=== PATIENT | female | born 1945 | race Caucasian/White ===

== ENCOUNTER → 2022-01-30 12:56 | Outpatient (BNVA) | payer MEDICARE, OTHER, SELFPAY | PROVIDERS: Family Provider Nurse Practitioner; PCP Nurse Practitioner; Referring Provider Nurse Practitioner Family; Visit Provider Orthopaedic Surgery | DX: M47.12 Other spondylosis with myelopathy, cervical region (principal); M17.0 Bilateral primary osteoarthritis of knee; Z98.1 Arthrodesis status | CPT/HCPCS: 72050; 73560; 73565; 99203; 99204 ==

== ENCOUNTER 2022-02-16 14:39 | Outpatient (CLI) | payer MEDICARE, OTHER, SELFPAY ==
--- NOTE | 2022-02-16 14:49 | MR_ITS ---
WS: [id number] MRI CERVICAL SPINE NONCONTRAST TECHNIQUE: Sagittal T1, T2 and STIR imaging. Axial T2, gradient, and fiesta imaging. CLINICAL INFORMATION: M47.12 - Other spondylosis with myelopathy, cervical region COMPARISON: None. FINDINGS: Straightening of the normal cervical lordosis. ACDF C4-C5 with solid-appearing fusion. Straightening of the normal cervical lordosis. Small amount of chronic myelomalacia in the upper cervical cord. Cor d signal is otherwise normal. Slight anterolisthesis C2 on C3. C2-C3: Mild LEFT bony foraminal narrowing. Spinal canal is patent. RIGHT foramen is patent. C3-C4: Mild disc bulging with osteophytic ridging. Mild LEFT and no significant RIGHT foraminal narro wing. Mild central canal stenosis. C4-C5: Postoperative changes ACDF. Mild LEFT bony foraminal narrowing. Mild facet arthropathy. Spinal canal is patent. C5-C6: Mild disc bulging with osteophytic ridging. Moderate LEFT and mild RIGHT bony foraminal narrow ing. Mild central canal stenosis. Mild facet arthropathy. C6-C7: Disc osteophyte complex with endplate ridging. Slight effacement of ventral thecal sac. Spinal canal is patent. Mild LEFT greater than RIGHT foraminal narrowing. C7-T1: No significant disc bulging. Mild LEFT and no significant RIGHT foraminal narrowing. Spinal ca nal is patent. Visualized brain stem structures: Incidental cerebellar tonsillar ectopia. Prevertebral soft tissues: Normal. MR/MR cervical spin wo con* [id number] IMPRESSION: 1. Straightening of the normal cervical lordosis. Prior postoperative changes ACDF C4-C5. Fusion appears solid. 2. Mild central canal stenosis C3-C4 C5-C6 due to mild disc bulging with osteo phytic ridging. 3. Moderate LEFT C5-C6 bony foraminal narrowing. 4. Mild LEFT C3-C4, LEFT C4-C5, LEFT C5-C6, and LEFT proximal C7-T1 foraminal narrowing.
== END 2022-02-16 14:40 | disposition home or self-care (01) ==
PROVIDERS: PCP Nurse Practitioner Family; Visit Provider Orthopaedic Surgery
DX: M47.12 Other spondylosis with myelopathy, cervical region (principal); M48.02 Spinal stenosis, cervical region; M50.21 Other cervical disc displacement, high cervical region; M25.78 Osteophyte, vertebrae
CPT/HCPCS: 72141

== ENCOUNTER → 2022-02-21 09:18 | Outpatient (BNVA) | payer MEDICARE, OTHER, SELFPAY | PROVIDERS: PCP Nurse Practitioner Family; Visit Provider Nurse Practitioner Family | DX: M25.562 Pain in left knee (principal); G89.29 Other chronic pain | CPT/HCPCS: 20610; 99213; J1100; J2795; J3301 ==

== ENCOUNTER → 2022-03-20 13:22 | Outpatient (BNVA) | payer MEDICARE, OTHER, SELFPAY | PROVIDERS: PCP Nurse Practitioner Family; Visit Provider Physician Assistant | DX: M51.37 Other intervertebral disc degeneration, lumbosacral region (principal) | CPT/HCPCS: 72110; 99203; 99213 ==

== ENCOUNTER 2022-03-27 14:37 | Outpatient (CLI) | payer MEDICARE, OTHER, SELFPAY ==
--- NOTE | 2022-03-27 15:15 | MR_ITS ---
WS: [id number] MRI LUMBAR SPINE NONCONTRAST HISTORY: lower back pain COMPARISON: None available. TECHNIQUE: Sagittal and axial multisequence imaging is submitted. Prior anterior cervical fusion at C4-5. Increase in thoracic kyphosis with disc space narrowing throu ghout the thoracic spine. L4 anterolisthesis by 3 mm. Disc spaces are narrowed throughout. No acute fractures or marrow edema. Conus terminates normally at L1-2 disc level. L1-L2: Diffuse annular disc bulging. There is a central disc protrusion contacting the ventral thecal sac. Increased signal in the disc protrusions probably calcification. There is mild contact and defo rmity the ventral thecal sac. Mild bilateral foraminal stenosis. L2-L3: Diffuse annular disc bulging with mild subarticular recess and foraminal stenosis. L3-L4: Diffuse annular disc bulging with moderate ligamentum flavum and facet arthritis. Encroachment into the ventral thecal sac with at least moderate central, bilateral subarticular recess and forami nal stenosis. Slightly greater foraminal narrowing on the LEFT. L4-L5: Diffuse marked annular disc bulging with ligamentum flavum and facet arthritis. Moderate centr al with bilateral subarticular recess and foraminal stenosis. There is encroachment upon the L4 and L 5 nerve roots. L5-S1: Mild disc bulging and facet joint arthritis. Mild encroachment upon the S1 nerve roots. Mild b ilateral foraminal stenosis and encroachment upon the L5 nerve roots. Numerous bilateral renal cysts varying in sizes. The largest renal cyst within each kidney approximat reese 7 cm in diameter. 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 IMPRESSION: 1. Multilevel areas of stenosis throughout the lumbar spine. 2. Moderate central, bilateral subarticular recess and foraminal stenosis at L4-5 with encroachment upon the L4 and L5 nerve roots. 3. Moderate central, bilateral subarticular recess and foraminal stenosis at L3-4. Encroachment upon the L3 and L4 nerve roots. 4. Mild disc bulging at L5-S1 with encroachment upon the L5 and S1 nerve roots. 5. Central disc protrusion appears calcified at L1-2 with contact and deformity of the ventral theca l sac. Mild bilateral foraminal stenosis at L1-2. 6. Mild bilateral subarticular recess and foraminal stenosis at L2-3. 7. Numerous bilateral renal cysts. 8. L4 anterolisthesis by 3 mm.
== END 2022-03-27 14:38 | disposition home or self-care (01) ==
LOC: RAD 14:38
PROVIDERS: PCP Nurse Practitioner Family; Visit Provider Physician Assistant
DX: M25.512 Pain in left shoulder (principal); M25.511 Pain in right shoulder; M54.50 Low back pain, unspecified
CPT/HCPCS: 72148; 73030; 99204

== ENCOUNTER 2022-04-18 12:51 | Outpatient (CLI) | payer MEDICARE, OTHER, SELFPAY ==
--- NOTE | 2022-04-18 13:00 | MR_ITS ---
WS: [id number] MRI LEFT SHOULDER NONCONTRAST TECHNIQUE: Sagittal T2, coronal T1, T2 and proton density imaging. Axial gradient PDE imaging. CLINICAL INFORMATION: pain COMPARISON: None. FINDINGS: Advanced degenerative arthritis AC joint with narrowing of the subacromial space. Small joint effusio n. Subtle small amount of subacromial/subdeltoid fluid. Subacromial spurring. Slight impingement on t he distal supraspinatus with tendinopathy. Tiny undersurface tear distal supraspinatus. Normal infras pinatus. Normal teres minor. Biceps tendon is absent from the bicipital groove. Intra-articular biceps tendon appears intact with tendinopathy and T2 signal abnormality. Biceps labral anchor appears grossly intact. Chronic appearing partial intrasubstance tear involving the distal subscapularis tendinopathy. Degene rative fraying glenoid labrum. Normal bone marrow signal involving the glenoid. Subchondral cystic ch ajith involving the greater tuberosity. MR/MR shoulder LT wo con* [id number] IMPRESSION: 1. Advanced degenerative arthritis at the AC joint with edema and mild downslo ping acromion. Subacromial spurring. Tendinopathy in the distal supraspinatus w ith tiny undersurface tear. 2. Mild tendinopathy involving the subscapularis. Chronic appearing tear at th e distal subscapularis. 3. Biceps tendon is absent in the bicipital groove consistent with chronic tea r. 4. Intra-articular biceps tendon appears intact with T2 signal abnormality com patible with tendinopathy. 5. Small joint effusion.
== END 2022-04-18 12:52 | disposition home or self-care (01) ==
PROVIDERS: PCP Nurse Practitioner Family; Visit Provider Orthopaedic Surgery
DX: M19.012 Primary osteoarthritis, left shoulder (principal); M25.412 Effusion, left shoulder; M67.814 Other specified disorders of tendon, left shoulder
CPT/HCPCS: 73221

== ENCOUNTER → 2022-04-24 09:22 | Outpatient (BNVA) | payer MEDICARE, OTHER, SELFPAY | PROVIDERS: PCP Nurse Practitioner Family; Visit Provider Orthopaedic Surgery | DX: M19.012 Primary osteoarthritis, left shoulder (principal); M67.912 Unspecified disorder of synovium and tendon, left shoulder | CPT/HCPCS: 20610; 99213; J0702; J3490 ==

== ENCOUNTER → 2022-07-12 13:31 | Outpatient (BNVA) | payer MEDICARE, OTHER, SELFPAY | PROVIDERS: PCP Nurse Practitioner Family; Visit Provider Internal Medicine Cardiovascular Disease | DX: I11.0 Hypertensive heart disease with heart failure (principal); I50.9 Heart failure, unspecified; I65.22 Occlusion and stenosis of left carotid artery; I34.0 Nonrheumatic mitral (valve) insufficiency; I25.3 Aneurysm of heart; R00.2 Palpitations | CPT/HCPCS: 36415; 80048; 83880; 93005; 99204 ==

== ENCOUNTER → 2022-07-24 12:36 | Outpatient (BNVA) | payer MEDICARE, OTHER, SELFPAY | PROVIDERS: PCP Nurse Practitioner Family; Visit Provider Orthopaedic Surgery | DX: M48.061 Spinal stenosis, lumbar region without neurogenic claudication (principal) | CPT/HCPCS: 99214 ==

== ENCOUNTER → 2022-07-25 09:43 | Outpatient (BNVA) | payer MEDICARE, OTHER, SELFPAY | PROVIDERS: PCP Nurse Practitioner Family; Visit Provider Orthopaedic Surgery | DX: M17.0 Bilateral primary osteoarthritis of knee (principal); M67.912 Unspecified disorder of synovium and tendon, left shoulder | CPT/HCPCS: 20610; 99212; J0702; J3490; J7325 ==

== ENCOUNTER 2022-08-13 09:19 | Outpatient (CLI) | payer MEDICARE, OTHER, SELFPAY ==
[2022-08-13 09:34] VITALS: BMI 23.5
--- NOTE | 2022-08-13 09:34 | ECG_ITS ---
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 Interpretive Statements NAME OF STUDY: LEXISCAN SESTAMIBI STRESS TEST INDICATION: Congestive Heart Failure PROCEDURE: At the baseline, the EKG revealed normal sinus rhythm with some nonspecific T wave changes. Poor R wave progression.. The baseline heart was 70 bpm with a blood pressue of 138/77 mm of Hg Lexiscan was infused over a period of 20 seconds. A total of 0.4 milligrams of Lexiscan was infused. The stress phase was continued for a total of 5 minutes. Heart rate at the end of the stress phase was 79 bpm with a blood pressure 142/64 mm of Hg. The EKG at the peak infusion revealed no significant changes. Sestamibi was injected 20 seconds after the Lexiscan infusion. Heart rate at the end of the recovery phase was 72 bpm with a blood pressure of 144/72 mm of Hg. CONCLUSION: 1. No significant EKG changes with the LexiScan infusion 2. No LexiScan induced chest pain or cardiac arrhythmia 3. Normal blood pressure and heart rate response 4. Sestamibi/sestamibi perfusion scan pending; see separate report. Electronically Signed On 08-18-2022 13:14:32 PLANTING SUPERVISOR by Kae Ashton M.D. [id number]
--- NOTE | 2022-08-13 09:35 | NMCV_ITS ---
NM shin perf SPECT r/s* [id number] Lyubov Montes Age: 76 Gender: F : 1945 Exam Date: 08/13/2022 10:45 Ordering Phys: Kae Ashton MD ([email or web address]) Technologist: LONDON York Exam Location: [facility] Indications: CHEST PAIN STRESS TEST Please [facility] IMAGE PROTOCOL Rest/Stress 1 Lexiscan Day Radiopharmaceutical Dose (mCi) Administration Site Administered by Rest: Tc-99m 10.8 IV LONDON Call Sestamibi Stress:Tc-99m 32.4 IV LONDON Call Sestamibi Rest: 13-Aug-2022 60 Discovery 630 Stress: 13-Aug-2022 30 Discovery 630 0.4mg Lexiscan. Supine position only as patient was unable to lay prone. SPECT RESULTS Technical Quality: Excellent Raw Data Analysis: Normal; Hiatal Hernia Image Corrections: No attenuation or motion correction applied Summed Stress Score: 1 Summed Rest Score: 0 Summed Difference Score: 1 PERFUSION FINDINGS Small area of slightly decreased tracer uptake was noted in the mid inferolateral region. Some reversibility was noted in this area advised FUNCTIONAL RESULTS (calculated via Gated SPECT) Stress Image LV EF (%): 82 Stress EDV (mL):73 TID: 0.76 Stress ESV (mL):13 FUNCTIONAL FINDINGS: Segmental wall motion analysis revealing no gross wall motion abnormalities IMPRESSIONS 1. Myocardial perfusion imaging revealing a small area of reversible defect in the mid inferolateral region, suggestive of subtle ischemia in the distribution of the left circumflex artery . 2. Normal ejection fraction of 82%. 3. LV wall motion analysis revealing no gross wall motion abnormalities. 4. Normal LV volume. No similar previous studies are available for comparison Dr Kae Ashton MD [facility] (Electronically Signed) Final Date: 13 August 2022 13:49 S
[2022-08-13] MEDS: regadenoson 0.4 Mg/5 ml Syringe IVP (11:44)
[2022-08-13 12:03] VITALS: BP 142/72; PULSE 72
== END 2022-08-13 09:20 | disposition home or self-care (01) ==
LOC: CDL 09:27
PROVIDERS: PCP Nurse Practitioner Family; Visit Provider Internal Medicine Cardiovascular Disease
DX: R07.9 Chest pain, unspecified (principal)
CPT/HCPCS: 36415; 78452; 93017; 96374; A9500; J2785

== ENCOUNTER → 2022-09-18 12:54 | Outpatient (BNVA) | payer MEDICARE, OTHER, SELFPAY | PROVIDERS: PCP Nurse Practitioner Family; Referring Provider Nurse Practitioner; Visit Provider Specialist | DX: G56.13 Other lesions of median nerve, bilateral upper limbs (principal) | CPT/HCPCS: 95910; 95912 ==

== ENCOUNTER → 2022-11-06 13:25 | Outpatient (BNVA) | payer OTHER, SELFPAY | PROVIDERS: PCP Nurse Practitioner Family; Visit Provider Thoracic Surgery (Cardiothoracic Vascular Surgery) | DX: I83.893 Varicose veins of bilateral lower extremities with other complications (principal) | CPT/HCPCS: 99203 ==

== ENCOUNTER 2022-11-20 11:47 | Outpatient (CLI) | payer MEDICARE, OTHER, SELFPAY ==
--- NOTE | 2022-11-20 12:00 | USCV_ITS ---
Lyubov Montes Age: 77 Gender: F : 1945 Exam Date: 11/20/2022 12:14 Ordering Phys: Kae Ashton MD ([email or web address]) Technologist: MALVIN Exam Location: [facility] [place] Indication: MR BP: 130 / 60 HR: 48 Rhythm: Sinus Technical Quality: Adequate MEASUREMENTS (Male / Female) Normal Values 2D ECHO LVOT Diameter 2.0 cm LV Ejection Fraction MOD 2C 67.0 % LV Ejection Fraction 2C AL 67.1 % LA Diameter 4.2 cm LA Width 3.6 cm LA Height 5.8 cm RA Width 3.1 cm RA Height 5.7 cm Aorta at Sinotubular Diameter 2.0 cm IVC Diameter 1.8 cm M-MODE Aortic Annulus Diameter 2.6 cm LA Ao Ratio MM 1.6 MV E Point Septal Separation 1.0 cm DOPPLER AV Peak Velocity 186.3 cm/s LVOT Peak Velocity 105.0 cm/s AV Area Cont Eq vti 1.8 cm squared AV Area Cont Eq pk 1.8 cm squared MV Peak Velocity 98.0 cm/s MV Area PHT 5.6 cm squared Mitral E to A Ratio 1.0 MV E' Velocity 43.0 cm/s Mitral E to MV E' Ratio 7.4 Mitral E to LV E' Lateral Ratio 7.5 Mitral E to LV E' Septal Ratio 7.3 TR Peak Velocity 261.2 cm/s TR Peak Gradient 27.3 mmHg TR Mean Velocity 207.5 cm/s TR Mean Gradient 18.8 mmHg TR Velocity Time Integral 94.2 cm TV Peak E Velocity 49.0 cm/s Right Atrial Pressure 3.0 mmHg Pulmonary Artery Systolic Pressu 30.3 mmHg PV Peak Velocity 141.0 cm/s RV Acceleration Time 0.1 s RV Ejection Time 0.3 s RV AcT/ET 0.4 FINDINGS Left Ventricle Normal left ventricular size and systolic function, EF 66 %. No regional wall motion abnormalities. Right Ventricle The right ventricle is normal in size and function. Right Atrium Mildly increased right atrial size. Left Atrium Moderately increased left atrial size. Interatrial septum, bulging to the right Mitral Valve Mild-moderate mitral valve regurgitation. Aortic Valve Thickened aortic valve. Tricuspid Valve Kbya-ki-rcyeohci tricuspid valve regurgitation. Pulmonic Valve Trace pulmonary valve regurgitation. Pericardium Normal pericardium without effusion. Aorta Normal ascending aorta dimension. IVC Normal inferior vena cava. CONCLUSIONS Normal left ventricular size and systolic function, EF 66 %. No regional wall motion abnormalities. Moderately increased left atrial size. Interatrial septum, bulging to the right. Mildly increased right atrial size. Mild-moderate mitral valve regurgitation. Thickened aortic valve. Ando-uf-vkcgzpak tricuspid valve regurgitation. Trace pulmonary valve regurgitation. Estimated pulmonary artery peak systolic pressure 30 mmHg There is no pericardial effusion. There are no intracardiac masses. No similar previous studies are available for comparison Dr Kae Ashton MD [facility] (Electronically Signed) Final Date: 23 Nov 2022 07:57 S
== END 2022-11-20 11:48 | disposition home or self-care (01) ==
LOC: RAD 11:55
PROVIDERS: PCP Nurse Practitioner Family; Visit Provider Internal Medicine Cardiovascular Disease
DX: M47.22 Other spondylosis with radiculopathy, cervical region (principal); I34.0 Nonrheumatic mitral (valve) insufficiency; I35.8 Other nonrheumatic aortic valve disorders; I07.1 Rheumatic tricuspid insufficiency
CPT/HCPCS: 93306; 99214

== ENCOUNTER 2022-11-21 20:00 | Outpatient (CLI) | payer OTHER, SELFPAY | END 2022-11-22 05:00 | disposition home or self-care (01) | LOC: SLEEP 12-04 08:27 | PROVIDERS: PCP Nurse Practitioner Family; Visit Provider Specialist | DX: G47.33 Obstructive sleep apnea (adult) (pediatric) (principal); R09.02 Hypoxemia | CPT/HCPCS: 95810 ==

== ENCOUNTER 2022-11-22 12:02 | Outpatient (CLI) | payer OTHER, SELFPAY ==
--- NOTE | 2022-11-22 12:30 | USCV_ITS ---
Jyoti Lyubov Age: 77 Gender: F : 1945 Exam Date: 11/22/2022 12:32 Ordering Phys: Sanjay Fritz MD (Andy) ([email or web address]) Technologist: Davonte Barrios Exam Location: [facility] [place] Indication: HISTORY: PROCEDURES: FINDINGS: There is no evidence of bilateral deep vein thrombosis. No evidence of superficial thrombosis in the bilateral saphenous system. No evidence of reflux was noted in the bilateral deep venous system. There appears to be venous reflux in the right lower extremity at the locations of the GSV dist to SFJ, GSV prox, GSV dist, and GSV below knee. There appears to be venous reflux in the left lower extremity at the locations of the GSV mid, GSV dist, SSV prox, and SSV mid. CONCLUSIONS #1. No evidence of DVT in the above-mentioned identifiable veins. #2. Significant venous reflux of greater than 500 ms were noted on the right side, distal to the saphenofemoral junction, proximal greater saphenous vein, distal and below-knee greater saphenous vein segments. These venous segments were greater than 1 cm deep from the surface. They were measuring anywhere from 0.25 to 0.33 cm in diameter. #3. Significant venous reflux of greater than 500 ms were noted on the left side at the mid and distal greater saphenous vein segments; proximal and mid small saphenous vein segments. The greater saphenous vein segments were measuring 0.31 and 0.33 cm in diameter. They were greater than 1 cm deep from the surface. The small saphenous vein segments were 1 or less than 1 cm deep from the surface. Dr Kae Ashton MD [facility] (Electronically Signed) Final Date: 23 Nov 2022 17:19 S
== END 2022-11-22 12:03 | disposition home or self-care (01) ==
LOC: RAD 12:05
PROVIDERS: PCP Nurse Practitioner Family; Visit Provider Thoracic Surgery (Cardiothoracic Vascular Surgery)
DX: I83.90 Asymptomatic varicose veins of unspecified lower extremity (principal)
CPT/HCPCS: 93970; 99203

== ENCOUNTER → 2022-11-26 13:08 | Outpatient (BNVA) | payer OTHER, SELFPAY | PROVIDERS: PCP Nurse Practitioner Family; Visit Provider Nurse Practitioner Family | DX: I11.0 Hypertensive heart disease with heart failure (principal); I50.9 Heart failure, unspecified; I65.22 Occlusion and stenosis of left carotid artery | CPT/HCPCS: 99214 ==

== ENCOUNTER → 2022-12-11 14:08 | Outpatient (BNVA) | payer OTHER, SELFPAY | PROVIDERS: PCP Nurse Practitioner Family; Visit Provider Thoracic Surgery (Cardiothoracic Vascular Surgery) | DX: I83.90 Asymptomatic varicose veins of unspecified lower extremity (principal) | CPT/HCPCS: 99213 ==

== ENCOUNTER 2022-12-17 11:39 | Outpatient (CLI) | payer OTHER, SELFPAY ==
--- NOTE | 2022-12-17 13:00 | USCV_ITS ---
Lyubov Montes Age: 77 Gender: F : 1945 Exam Date: 12/17/2022 11:58 Ordering Phys: Chata Aragon Technologist: Davonte Barrios Exam Location: [facility] [place] Indication: carotid stenosis and occlusion Risk Factors: Previous Vascular Surgery: Right Brachial BP: / Left Brachial BP: / Right Left Velocity (cm/s) Spectral Plaque Velocity (cm/s) Spectral Plaque Syst/Diast Broadening Syst/Diast Broadening 52.60/ 11.20 Prox CCA 69.70 / 21.00 51.90/ 15.10 Mid CCA 59.00 / 18.60 48.30/ 13.20 Distal CCA 69.90 / 27.20 57.10/ 16.00 Prox ICA 69.90 / 22.50 87.40/ 28.90 Mid ICA 48.10 / 14.40 61.40/ 21.20 Distal ICA 110.30/ 35.30 71.80 ECA 45.80 1.68 ICA/CCA 0.81 Antegrade Vertebral Antegrade 61.10/ 17.70 cm/s 58.50/ 17.10 cm/s Bi Subclavian Tri 91.70 72.60 FINDINGS Comparison: none available. No significant elevation of systolic or diastolic velocities. Waveforms are normal. Minimal bilateral carotid atherosclerosis with no elevation of velocity. CONCLUSIONS Bilateral ICA stenosis less than 50%. Mild carotid atherosclerosis. Dr. Lyn Hernandez DO (Electronically Signed) Final Date: 17 December 2022 12:57 S
== END 2022-12-17 11:40 | disposition home or self-care (01) ==
LOC: RAD 11:40
PROVIDERS: PCP Nurse Practitioner Family; Visit Provider Nurse Practitioner Family
DX: I65.22 Occlusion and stenosis of left carotid artery (principal); I77.9 Disorder of arteries and arterioles, unspecified
CPT/HCPCS: 93880

== ENCOUNTER → 2022-12-25 13:19 | Outpatient (BNVA) | payer MEDICARE, OTHER, SELFPAY | PROVIDERS: PCP Nurse Practitioner Family; Visit Provider Orthopaedic Surgery | DX: M67.912 Unspecified disorder of synovium and tendon, left shoulder (principal); M17.12 Unilateral primary osteoarthritis, left knee | CPT/HCPCS: 20610; 99212; J0702; J3490 ==

== ENCOUNTER 2023-05-09 15:47 | Outpatient (CLI) | payer OTHER, SELFPAY ==
--- NOTE | 2023-05-09 | MR_ITS ---
WS: [id number] MRI THORACIC SPINE noncontrast. HISTORY: BACK PAIN COMPARISON: None available. TECHNIQUE: Multiplanar sequences are performed in sagittal and axial planes. Prior anterior cervical fusion at C4-5. Increase in thoracic kyphosis. No acute fractures. Small reac tive marrow edema along the endplates of T6, T9 and T10. Signal within the cord is normal. Very mild narrowing of the disc spaces. T1-2: Normal. T2-3: Normal. T3-4: Normal. T4-5: Normal. T5-6: Normal. T6-7: Mild facet arthritis. No stenosis. T7-8: Normal. T8-9: Mild facet arthritis. T9-10: Moderate bilateral facet arthritis and mild bilateral foraminal narrowing. T10-11: Moderate facet arthritis with mild foraminal narrowing. T11-12: Normal. Numerous bilateral cystic masses are noted in the upper abdomen associated with the kidneys. There ma y be a cyst within the liver also. Moderate hiatal hernia. IMPRESSION: 1. No acute fracture or high-grade central or foraminal stenosis. 2. Facet arthritis and mild foraminal narrowing most significant at T9-10 and T11-12. 3. Renal and probable hepatic cysts. No prior studies are noted described in the cyst. Recommend foll ow-up CT abdomen and pelvis with contrast to better characterize and completely imaged the cystic are as within the liver and cyst.
== END 2023-05-09 15:48 | disposition home or self-care (01) ==
LOC: RAD 15:48
PROVIDERS: PCP Nurse Practitioner Family; Visit Provider Anesthesiology Pain Medicine
DX: M47.814 Spondylosis without myelopathy or radiculopathy, thoracic region (principal); M48.04 Spinal stenosis, thoracic region
CPT/HCPCS: 72146

== ENCOUNTER 2023-05-31 10:17 | Emergency (ER) | payer OTHER, SELFPAY ==
[2023-05-31 10:40] VITALS: BP 175/88; PULSE 52; RESP 16; TEMP 36.9; O2SAT 98; BMI 24.0
--- NOTE | 2023-05-31 13:17 | ED_ITS ---
HPI - Eye Problem General: Chief complaint: Eye Problems Stated complaint: reports has eye surgery and has blood in her eye Time Seen by Provider: 05/31/23 12:31 History of Present Illness: 77-year-old female presents to the emergency department with complaints of headache and right eye redness. Patient states that she recently had a blepharoplasty and was doing fine until yesterday when she had an episode of nausea and vomiting while at a holiday dinner. She states that she noted that this morning when she woke up her eye on the right was significantly reddened with an area of blood noted in the white portion of her eye. She states she does currently have a headache that is a 4 out of 10. She states this is not any different than her previous headaches. She has been treated in the past for headaches and fibromyalgia. She denies change in vision she states she has had bilateral cataract surgery. She denies acute eye pain. She denies direct known trauma or injury. She is not on anticoagulation. Associated symptoms: Reports headache(s) Review of Systems General: Reports: 10 or more systems reviewed and unremarkable except in HPI and below Eyes: Reports: eye redness (Right subconjunctival hemorrhage noted) Neuro: Reports: headache(s) PFSH ED PFSH: Medical History Fibromyalgia Varicose veins of lower extremity Family History Mother Cancer CAD (coronary artery disease) Diabetes Hypertension Stroke Father Parkinsons disease Son Suicide Denies family history of Clotting disorder Dementia Chronic kidney disease (CKD) Anesthesia complication Bleeding disorder Lung disease Social History Smoking and tobacco/nicotine status: never used tobacco/nicotine Alcohol intake: never Substance/Drug Use: never Lives independently: Yes Household members: spouse Housing: House Marital status: Number of children: 2 service: Yes Pets and animals: Yes Pets & animals: dog(s) Physical Exam Narrative: EXAM NARRATIVE: Constitutional: the patient appears well nourished and with normal development. Vital signs reviewed as documented. No acute distress. HENMT: Normocephalic, atraumatic. Extermal ears with normal appearance without drainage. Nose without drainage, normal appearance. Mucus membranes moist. Right eye with 2 areas of some conjunctival hemorrhage at the 5 o'clock position and the 1 o'clock position. Extraocular movements are intact, pupils are equal, round, reactive to light and accommodation. The patient does have post blepharoplasty sutures to the upper eyelid on the right. Neck is supple, No jugular venous distension, trachea is midline, no appreciable carotid bruits. No lymphadenopathy. No meningeal signs. Flexion, extension and lateral rotation is without pain. Eyes: Pupils are equal, round, reactive to light and accommodation. No scleral icterus. Extra-ocular movement are intact. Thorax is symmetrical and with equal rise and fall with respirations. Resp: Lungs are clear to auscultation. No wheezes, rales, crackles or ronchi at present. Cardio: Regular rate and rhythm. Positive S1, S2. No appreciable murmurs, rubs or gallops. GI: Abdominal exam reveals normal bowel sounds to all quadrants. No organomegaly. No obvious palpable masses noted. No hepatomegally appreciated. Soft, nontender to palpation. Extremity: Extremities are non-edematous and both femoral and pedal pulses are 2+ and equal bilaterally. Moves all extremities well, sensation in all extremities. Neuro: Alert and oriented x4, person, place, time and situation. Cranial nerves II through XII are grossly intact, there is no focal neurological deficits that I can appreciate at present. Motor strength in the upper and lower extremities are equal and bilateral 5/5. Psych: Cooperative, calm, normal thought process, appropriate judgment. Skin: No lesions, rashes. No gross abnormalities noted. Back: Symmetrical, no obvious deformity, No CVA tenderness Course Vital Signs: Vital signs: Vital Signs Temperature 98.4 F 05/31/23 10:40 Pulse Rate 52 L 05/31/23 10:40 Respiratory Rate 16 05/31/23 10:40 Blood Pressure 175/88 05/31/23 10:40 Pulse Oximetry 98 05/31/23 10:40 Oxygen Delivery Me thod Room Air 05/31/23 10:40 MDM - Eye Problem Medical Decision Making Physical exam completed, it is noted the patient's blood pressure is significantly elevated we will give her 0.1 of clonidine to treat her hypertension. I have educated the patient regarding supportive care and treatment of subconjunctival hemorrhage and also encouraged her to follow-up with her surgeon that completed her blepharoplasty. Medical Records I reviewed the patient's medical records. No radiology studies performed this visit Discharge Plan Discharge Patient Disposition: Home Clinical Impression: Hypertension, uncontrolled, Subconjunctival hemorrhage, non-traumatic Condition: Stable Prescriptions: No Action amlodipine-benazepril 10-20 mg capsule 1 cap PO DAILY triazolam 0.25 mg tablet 0.25 mg PO .at bedtime hydrochlorothiazide 25 mg tablet 25 mg PO DAILY nitroglycerin [Nitrostat] 0.4 mg tablet, sublingual 0.4 mg sublingual Q5M PRN Rx Instructions: do not exceed 3 doses per episode cholecalciferol (vitamin D3) 25 mcg (1,000 unit) capsule 25 mcg PO DAILY hydroxyzine HCl 25 mg tablet 25 mg PO TID PRN levothyroxine 100 mcg tablet 100 mcg PO DAILY oxycodone 15 mg tablet 15 mg PO Q4H PRN potassium chloride 20 mEq/15 mL liquid 20 meq PO DAILY zonisamide 100 mg capsule 100 mg PO TID magnesium 250 mg tablet 250 mg PO DAILY PRN metoprolol tartrate 25 mg tablet 25 mg PO BID Qty: 180 3RF isosorbide mononitrate 30 mg tablet extended release 24 hr 30 mg PO DAILY Qty: 90 3RF Discharge Orders: Discharge ED (Routine); Ordered 05/31/23 Ordered By: Jayesh Veliz Referrals: Farzaneh Roth FNP [Primary Care Provider] - Discharge Diet: Advance as tolerated Discharge Activity: Resume usual activity Patient Instructions: Opioid Safety, Pain Management Activity Restrictions/Additional Instructions: Activity Restrictions/Additional Instructions: Thank you for choosing [facility] for your healthcare needs today. Please realize that you were seen in the Emergency Department and that we are providing you with an emergency medical screening exam and this may not be complete and all inclusive of all the testing and or medical work-up that you may need to determine your ailment or severity of your illness. It is very important that you follow-up as instructed with your Primary care provider or Specialist for additional evaluation and to discuss your medical treatment plan. You may return to the Emergency Department should you have concerns or if your condition changes or worsens in any way. Coding Level of Care Code ED Manager Film for Giselle Rodriguez
[2023-05-31 13:18] VITALS: BP 192/93
[2023-05-31 13:51] VITALS: BP 193/92
[2023-05-31] MEDS: cloNIDine 0.1 mg Tablet 0.2 MG PO (13:51)
== END 2023-05-31 13:52 | disposition home or self-care (01) ==
PROVIDERS: Emergency Provider Internal Medicine; PCP Nurse Practitioner Family
DX: I10 Essential (primary) hypertension (principal); H11.31 Conjunctival hemorrhage, right eye
CPT/HCPCS: 99283

== ENCOUNTER → 2023-06-05 13:28 | Outpatient (BNVA) | payer OTHER, MEDICARE, SELFPAY | PROVIDERS: PCP Nurse Practitioner Family; Visit Provider Specialist | DX: M17.10 Unilateral primary osteoarthritis, unspecified knee (principal) | CPT/HCPCS: 20610; 73560; 73565; 99204; J7318 ==

== ENCOUNTER → 2023-06-10 15:14 | Outpatient (BNVA) | payer OTHER, MEDICARE, SELFPAY | PROVIDERS: PCP Nurse Practitioner Family; Visit Provider Internal Medicine Cardiovascular Disease | DX: R07.89 Other chest pain (principal); I11.0 Hypertensive heart disease with heart failure; I50.32 Chronic diastolic (congestive) heart failure; I34.0 Nonrheumatic mitral (valve) insufficiency; I25.3 Aneurysm of heart; K21.00 Gastro-esophageal reflux disease with esophagitis, without bleeding | CPT/HCPCS: 99214 ==

== ENCOUNTER → 2023-10-22 07:42 | Outpatient (BNVA) | payer OTHER, SELFPAY | PROVIDERS: PCP Nurse Practitioner Family; Referring Provider Nurse Practitioner; Visit Provider Psychiatry & Neurology Neurology | DX: M54.81 Occipital neuralgia (principal); Q07.00 Arnold-Chiari syndrome without spina bifida or hydrocephalus; M54.9 Dorsalgia, unspecified; M54.2 Cervicalgia; G43.511 Persistent migraine aura without cerebral infarction, intractable, with status migrainosus | CPT/HCPCS: 36415; 82565; 99203 ==

== ENCOUNTER 2023-11-21 10:19 | Outpatient (CLI) | payer OTHER, SELFPAY ==
--- NOTE | 2023-11-21 11:00 | MR_ITS ---
WS: [id number] MRI BRAIN WITHOUT CONTRAST HISTORY: G43.909 - Migraine, unspecified, not intractable, headaches. COMPARISON: 11/06/2005 TECHNIQUE: Diffusion imaging, multiplanar T1, T2 and FLAIR imaging obtained. Study performed without IV contrast. Unable to achieve IV access. No evidence for acute infarct or hemorrhage. Cardoso-white matter differentiation is normal. Increased in the small vessel ischemic disease surrounding the ventricles. No prior or interval infar ct. Mild atrophy. Ventricles and extra-axial spaces are normal. Continued mild cerebellar tonsillar ectopia. Slight crowding of the posterior fossa. Incidental LEFT arachnoid cyst. Dural venous sinuses and robinson of Moses demonstrate no abnormality on this unenhanced studies. Paranasal sinuses: Clear. Mastoid air cells: Normal. Calvarium and scalp: Intact. MR/MR head wo con* [id number] IMPRESSION: 1. No acute infarct. 2. Mild increase in small vessel ischemic change in the periventricular white matter. 3. No prior infarct. 4. Ectopia of the cerebellar tonsils is similar to the prior MRI from 2.
== END 2023-11-21 10:20 | disposition home or self-care (01) ==
LOC: RAD 10:19
PROVIDERS: PCP Nurse Practitioner Family; Visit Provider Psychiatry & Neurology Neurology
DX: G43.909 Migraine, unspecified, not intractable, without status migrainosus (principal); Q04.8 Other specified congenital malformations of brain
CPT/HCPCS: 70551

== ENCOUNTER → 2023-12-03 13:55 | Outpatient (BNVA) | payer OTHER, SELFPAY | PROVIDERS: PCP Nurse Practitioner Family; Visit Provider Internal Medicine Cardiovascular Disease | DX: I11.0 Hypertensive heart disease with heart failure (principal); I50.32 Chronic diastolic (congestive) heart failure; I34.0 Nonrheumatic mitral (valve) insufficiency; I65.22 Occlusion and stenosis of left carotid artery; I25.3 Aneurysm of heart; I83.90 Asymptomatic varicose veins of unspecified lower extremity | CPT/HCPCS: 99214 ==

== ENCOUNTER → 2024-03-10 09:40 | Outpatient (BNVA) | payer OTHER, SELFPAY | PROVIDERS: PCP Nurse Practitioner Family; Visit Provider Specialist | DX: M54.81 Occipital neuralgia (principal); G43.711 Chronic migraine without aura, intractable, with status migrainosus | CPT/HCPCS: 64405; 64450; 99214 ==

== ENCOUNTER → 2024-04-09 11:00 | Outpatient (BNVA) | payer OTHER, SELFPAY | PROVIDERS: PCP Nurse Practitioner Family; Visit Provider Specialist | DX: M54.81 Occipital neuralgia (principal); G43.711 Chronic migraine without aura, intractable, with status migrainosus | CPT/HCPCS: 64405; 64450; J1010; J3490 ==

== ENCOUNTER → 2024-05-06 10:39 | Outpatient (BNVA) | payer MEDICARE, OTHER, SELFPAY | PROVIDERS: PCP Nurse Practitioner Family; Visit Provider Specialist | DX: G43.711 Chronic migraine without aura, intractable, with status migrainosus (principal) | CPT/HCPCS: 99214 ==

== ENCOUNTER → 2024-06-01 14:23 | Outpatient (BNVA) | payer OTHER, SELFPAY | PROVIDERS: PCP Nurse Practitioner Family; Visit Provider Internal Medicine Cardiovascular Disease | DX: I11.0 Hypertensive heart disease with heart failure (principal); I50.32 Chronic diastolic (congestive) heart failure; I34.0 Nonrheumatic mitral (valve) insufficiency; I25.3 Aneurysm of heart | CPT/HCPCS: 99214 ==

== ENCOUNTER → 2024-08-06 09:20 | Outpatient (BNVA) | payer MEDICARE, OTHER, SELFPAY | PROVIDERS: PCP Nurse Practitioner Family; Visit Provider Specialist | DX: G43.711 Chronic migraine without aura, intractable, with status migrainosus (principal); M79.7 Fibromyalgia | CPT/HCPCS: 99213 ==

== ENCOUNTER → 2025-02-02 13:04 | Outpatient (BNVA) | payer OTHER, MEDICARE, SELFPAY | PROVIDERS: PCP Nurse Practitioner Family; Visit Provider Specialist | DX: G43.711 Chronic migraine without aura, intractable, with status migrainosus (principal); M79.7 Fibromyalgia | CPT/HCPCS: 99213 ==

== ENCOUNTER → 2025-03-11 13:32 | Outpatient (BNVA) | payer OTHER, SELFPAY | PROVIDERS: PCP Nurse Practitioner Family; Visit Provider Specialist | DX: G43.711 Chronic migraine without aura, intractable, with status migrainosus (principal); M79.7 Fibromyalgia | CPT/HCPCS: 64615; J0585; J9999 ==

== ENCOUNTER → 2025-06-17 09:32 | Outpatient (BNVA) | payer OTHER, SELFPAY | PROVIDERS: PCP Nurse Practitioner Family; Visit Provider Specialist | DX: G43.711 Chronic migraine without aura, intractable, with status migrainosus (principal) | CPT/HCPCS: 64615; J0585; J9999 ==